=== PATIENT | female | born 1980 | race Caucasian/White ===

== ENCOUNTER 2017-10-21 19:00 | Inpatient (IN) | payer OTHER, SELFPAY ==
[2017-10-21] MEDS: 0.9% Saline Lock 10 ML Syringe IV (19:50)
[2017-10-21 20:21] LABS: Hematocrit 36.2 % (37-47); Hemoglobin 12.3 g/dl (12.0-15.0); Mean Corpuscular Hgb 29.5 pg (27.0-32.0); Mean Corpuscular Volume 86.8 fL (81-99); Mean Platelet Vol. 10.3 fl (6.2-12.0); Platelet Count 225 K/mm3 (150-450); RBC Distribution Width CV 13.6 % (11.6-14.6); RBC Distribution Width SD 43.2 fl (35.1-43.9); Red Blood Count 4.17 M/mm3 (4.2-5.4); Scan Indicated on CBC? Y/N NO; White Blood Count 8.9 K/mm3 (4.4-11.0)
[2017-10-21 20:24] VITALS: BMI 30.7
[2017-10-21] MEDS: miSOPROStol 200 MCG Tablet 400 MCG VAGINAL (20:31)
[2017-10-21 21:41] LABS: Amphetamine Urine VISTA NEGATIVE (<1000 ng/mL); Barbiturate Urine VISTA NEGATIVE (< 200 ng/mL); Benzodiazepine Urine VISTA NEGATIVE (< 200 ng/mL); Cocaine Urine VISTA NEGATIVE (< 300 ng/mL); Ecstacy Urine VISTA NEGATIVE (< 500 ng/mL); Methadone Urine VISTA NEGATIVE (< 300 ng/mL); PCP Urine VISTA NEGATIVE (< 25 ng/mL); THC Urine VISTA NEGATIVE (< 50 ng/mL); Vista UDS pH Range 6
[2017-10-22] MEDS: miSOPROStol 200 MCG Tablet 400 MCG VAGINAL ×3 (00:30→08:59)
[2017-10-22] MEDS: Nalbuphine 10 MG/ML Ampul IV ×3 (04:43→09:04)
[2017-10-22] MEDS: 0.9% Saline Lock 10 ML Syringe IV ×2 (04:43→09:03)
--- NOTE | 2017-10-22 05:31 | PCM.HP.STD ---
Problem List (1) demise before 20 weeks with retention of fetus Status: Chronic History of Present Illness Date of Admission: 10/21/17 The patient is a 36 year old F [with demise discovered at 20 weeks. US measurements c/w 16 week demise, No bleeding or cramping.] Past Medical History Past Medical History (Chronic Problems): Chronic Problems demise before 20 weeks with retention of fetus (Chronic) Allergies No Known Allergies Allergy (Verified 10/21/17 20:34) Home Medications: Ambulatory Orders Medication Instructions Recorded [place]-3 Fatty Acids/Fish Oil 1 each PO DAILY 08/18/13 [[place] 3 1,000 mg Softgel] Ferrous Sulfate [Ferrous Sulfate] 1 tablet PO DAILY 01/29/14 Folic Acid [Folic Acid] 1 mg PO DAILY 01/29/14 Surgical History: - - one section Psychiatric History: No pertinent psych hx SVP RESEARCH AND STRATEGIC ANALYSIS History: No pertinent SVP RESEARCH AND STRATEGIC ANALYSIS history, - - three vaginal deliveries Lives: Spouse/ Significant Other Smoking Status: Never smoker Tobacco Use: Non-smoker Alcohol: None Drugs: None Review of Systems Constitutional: Denies: Anorexia, Chills, Fever, Night Sweats Cardiovascular: Denies: Chest Pain, Chest Pressure, Chest Tightness, Edema Respiratory: Denies: Cough, Shortness of Breath Gastrointestinal: Denies: Abdominal Pain, Constipation, Diarrhea, Nausea Genitourinary: Denies: Dysuria Gynecological: Denies: Breast symptoms VTE Information - Inpt Only VTE Present on Admission: No VTE Mechan Device Prophylaxis: SCD's VTE Pharm Prophylaxis ordered?: No Subjective: Comfortable no complaints Objective: Afeb VSS - Physical Exam General: Alert, Oriented x3, Cooperative, No apparent distress Lungs: Clear to auscultation, Normal air movement Cardiovascular: Regular rate, Regular Rhythm Abdomen: Soft, Non Tender, Non-Distended, Gravid, Appropriate for Gestational Age Extremities: No edema, No Calf Tenderness Skin: No rashes Neurological: Neuro grossly intact Psych/Mental Status: Normal Affect Weight: 185 lb Body Mass Index (BMI) 30.7 Laboratory Tests Past 24 Hrs 10/21/17 10/21/17 10/21/17 19:50 19:50 21:15 WBC 8.9 RBC 4.17 L Hgb 12.3 Hct 36.2 L MCV 86.8 MCH 29.5 MCHC 34.0 RDW 13.6 RDW Differential 43.2 Plt Count 225 MPV 10.3 Urine Opiates Screen NEGATIVE Urine Methadone Screen NEGATIVE Ur Barbiturates Screen NEGATIVE Ur Phencyclidine Scrn NEGATIVE Ur Amphetamines Screen NEGATIVE U Methamphetamin-MDMA NEGATIVE U Benzodiazepines Scrn NEGATIVE Urine Cocaine Screen NEGATIVE U Cannabinoids Screen NEGATIVE Ur Drug Screen Comment Blood Type A POSITIVE Antibody Screen NEGATIVE Assessment/Plan demise at 20 weeks ega but likely demise at 16 weeks. Will start cytotec induction of labor. Procedures previously explained by Dr. Lott. Consents obtained. Blood type rH+.
--- NOTE | 2017-10-22 05:35 | HP.PCM_ITS ---
Problem List (1) demise before 20 weeks with retention of fetus Status: Chronic History of Present Illness Date of Admission: 10/21/17 The patient is a 36 year old F [with demise discovered at 20 weeks. US measurements c/w 16 week demise, No bleeding or cramping.] Past Medical History Past Medical History (Chronic Problems): Chronic Problems demise before 20 weeks with retention of fetus (Chronic) Allergies No Known Allergies Allergy (Verified 10/21/17 20:34) Home Medications: Ambulatory Orders Medication Instructions Recorded [place]-3 Fatty Acids/Fish Oil 1 each PO DAILY 08/18/13 [[place] 3 1,000 mg Softgel] Ferrous Sulfate [Ferrous Sulfate] 1 tablet PO DAILY 01/29/14 Folic Acid [Folic Acid] 1 mg PO DAILY 01/29/14 Surgical History: - - one section Psychiatric History: No pertinent psych hx CHIEF RADIATION THERAPIST History: No pertinent CHIEF RADIATION THERAPIST history, - - three vaginal deliveries Lives: Spouse/ Significant Other Smoking Status: Never smoker Tobacco Use: Non-smoker Alcohol: None Drugs: None Review of Systems Constitutional: Denies: Anorexia, Chills, Fever, Night Sweats Cardiovascular: Denies: Chest Pain, Chest Pressure, Chest Tightness, Edema Respiratory: Denies: Cough, Shortness of Breath Gastrointestinal: Denies: Abdominal Pain, Constipation, Diarrhea, Nausea Genitourinary: Denies: Dysuria Gynecological: Denies: Breast symptoms VTE Information - Inpt Only VTE Present on Admission: No VTE Mechan Device Prophylaxis: SCD's VTE Pharm Prophylaxis ordered?: No Subjective: Comfortable no complaints Objective: Afeb VSS - Physical Exam General: Alert, Oriented x3, Cooperative, No apparent distress Lungs: Clear to auscultation, Normal air movement Cardiovascular: Regular rate, Regular Rhythm Abdomen: Soft, Non Tender, Non-Distended, Gravid, Appropriate for Gestational Age Extremities: No edema, No Calf Tenderness Skin: No rashes Neurological: Neuro grossly intact Psych/Mental Status: Normal Affect Weight: 185 lb Body Mass Index (BMI) 30.7 Laboratory Tests Past 24 Hrs 10/21/17 10/21/17 10/21/17 19:50 19:50 21:15 WBC 8.9 RBC 4.17 L Hgb 12.3 Hct 36.2 L MCV 86.8 MCH 29.5 MCHC 34.0 RDW 13.6 RDW Differential 43.2 Plt Count 225 MPV 10.3 Urine Opiates Screen NEGATIVE Urine Methadone Screen NEGATIVE Ur Barbiturates Screen NEGATIVE Ur Phencyclidine Scrn NEGATIVE Ur Amphetamines Screen NEGATIVE U Methamphetamin-MDMA NEGATIVE U Benzodiazepines Scrn NEGATIVE Urine Cocaine Screen NEGATIVE U Cannabinoids Screen NEGATIVE Ur Drug Screen Comment Blood Type A POSITIVE Antibody Screen NEGATIVE Assessment/Plan demise at 20 weeks ega but likely demise at 16 weeks. Will start cytotec induction of labor. Procedures previously explained by Dr. Lott. Consents obtained. Blood type rH+.
--- NOTE | 2017-10-22 05:39 | PCM.PN.OB ---
Subjective: Relatively comfortable. Nubain IV was given. Objective: Afeb VSS - Physical Exam General: Alert, Oriented x3, Cooperative, No apparent distress Cardiovascular: Regular rate, Regular Rhythm Abdomen: Soft, Non Tender, Non-Distended, Gravid, Appropriate for Gestational Age Extremities: No edema, No Calf Tenderness Skin: No rashes Neurological: Neuro grossly intact Psych/Mental Status: Normal Affect Comment: rim of cervix palpable around parts Weight: 185 lb Body Mass Index (BMI) 30.7 Laboratory Tests Past 24 Hrs 10/21/17 10/21/17 10/21/17 19:50 19:50 21:15 WBC 8.9 RBC 4.17 L Hgb 12.3 Hct 36.2 L MCV 86.8 MCH 29.5 MCHC 34.0 RDW 13.6 RDW Differential 43.2 Plt Count 225 MPV 10.3 Urine Opiates Screen NEGATIVE Urine Methadone Screen NEGATIVE Ur Barbiturates Screen NEGATIVE Ur Phencyclidine Scrn NEGATIVE Ur Amphetamines Screen NEGATIVE U Methamphetamin-MDMA NEGATIVE U Benzodiazepines Scrn NEGATIVE Urine Cocaine Screen NEGATIVE U Cannabinoids Screen NEGATIVE Ur Drug Screen Comment Blood Type A POSITIVE Antibody Screen NEGATIVE Assessment/Plan Will continue with cytotec schedule. Expect delivery within the next few hours.
--- NOTE | 2017-10-22 10:47 | PCM.OB.VAG ---
Vaginal Delivery Maternal Presentation: Medically Indicated Induction Method of Induction: Cytotec Medical Reason for Induction: demise Amniotic Membrane Rupture Type: - - delivered intact Final ILANA: 03/07/18 Final ILANA Source: US <20 weeks Gestational age: 20 Weeks and 4 Days Date of Procedure: 10/22/17 Pre-Operative Diagnosis: 16 week demise Post-Operative Diagnosis: 16 week demise Surgery/ Procedure Performed: Spontaneous Vaginal Delivery Type of Anesthesia: None Description of Procedure: Precipitous spontaneous vaginal delivery of a nonviable baby with Apgars of 0/0. No episiotomy or laceration. I was not present for the delivery. Placenta and baby delivered with an intact membrane with placenta attached. Minimal bleeding noted after delivery. Evidence of maceration from prolonged demise. Baby and placenta to pathology for examination. Patient and her family did not desire to see or hold the baby. They also desire to not know the sex of the baby. They also desire that no or other arrangements be discussed or made as they desire the baby diskposition to be handled by Pathology. Placental Delivery Description: Spontaneous Placenta Disposition: Routine to Lab Medications given after delivery: - - po cytotec given 1.5 hours before delivery Complications: None
--- NOTE | 2017-10-22 10:54 | OP.PCM_ITS ---
Vaginal Delivery Maternal Presentation: Medically Indicated Induction Method of Induction: Cytotec Medical Reason for Induction: demise Amniotic Membrane Rupture Type: - - delivered intact Final ILANA: 03/07/18 Final ILANA Source: US <20 weeks Gestational age: 20 Weeks and 4 Days Date of Procedure: 10/22/17 Pre-Operative Diagnosis: 16 week demise Post-Operative Diagnosis: 16 week demise Surgery/ Procedure Performed: Spontaneous Vaginal Delivery Type of Anesthesia: None Description of Procedure: Precipitous spontaneous vaginal delivery of a nonviable baby with Apgars of 0/ 0. No episiotomy or laceration. I was not present for the delivery. Placenta and baby delivered with an intact membrane with placenta attached. Minimal bleeding noted after delivery. Evidence of maceration from prolonged demise. Baby and placenta to pathology for examination. Patient and her family did not desire to see or hold the baby. They also desire to not know the sex of the baby. They also desire that no or other arrangements be discussed or made as they desire the baby diskposition to be handled by Pathology. Placental Delivery Description: Spontaneous Placenta Disposition: Routine to Lab Medications given after delivery: - - po cytotec given 1.5 hours before delivery Complications: None
--- NOTE | 2017-10-22 10:54 | PCM.DCVAG ---
Discharge Diet: No Restrictions Discharge Activity: May Shower, May Take a Tub Bath May resume sexual activity in: 3 weeks Additional Activity Instructions:: Nothing in the vagina for 4-6 weeks. You may return to work/school in 6 weeks. Call your doctor if you observe: Fever of 101 or Higher, Inability to urinate, Inability to have a bowel movement, Using more than one pad per hour Additional Instructions: If you experience any of the following, contact your healthcare provider. Bleeding that soaks a pad every hour for 2 hours Unrelieved incision or abdominal pain Swelling, redness, discharge or bleeding from your incision or episiotomy site Your incision begins to separate Problems urinating (including inability to urinate or burning while urinating). Visual changes Severe headache Flu-like symptoms Pain or redness in one of both of your breasts Pain, warmth, tenderness or swelling in your legs, especially the calf area Frequent nausea and vomiting Symptoms of depression or anxiety If you experience any of the following, call 911 or go to the nearest Emergency Room. Chest pain Problems breathing Seizure activity Partial or complete paralysis of a body part, slurred speech, weakness or drooping of the face, or a sudden inability to walk or hold your balance Allergies/Adverse Reactions: Allergies No Known Allergies Allergy (Verified 10/21/17 20:34) Medications to take at Discharge [place]-3 Fatty Acids/Fish Oil [[place] 3 1,000 mg Softgel] 1 each PO DAILY 08/18/13 Ferrous Sulfate [Ferrous Sulfate] 1 tablet PO DAILY 01/29/14 Folic Acid [Folic Acid] 1 mg PO DAILY 01/29/14 Please Follow Up With: Reza Lott MD - [phone] When: Call to make an appointment with your doctor in 3-4 weeks.
--- NOTE | 2017-10-22 10:55 | DCINST_ITS ---
Discharge Diet: No Restrictions Discharge Activity: May Shower, May Take a Tub Bath May resume sexual activity in: 3 weeks Additional Activity Instructions:: Nothing in the vagina for 4-6 weeks. You may return to work/school in 6 weeks. Call your doctor if you observe: Fever of 101 or Higher, Inability to urinate, Inability to have a bowel movement, Using more than one pad per hour Additional Instructions: If you experience any of the following, contact your healthcare provider. * Bleeding that soaks a pad every hour for 2 hours * Unrelieved incision or abdominal pain * Swelling, redness, discharge or bleeding from your incision or episiotomy site * Your incision begins to separate * Problems urinating (including inability to urinate or burning while urinating) . * Visual changes * Severe headache * Flu-like symptoms * Pain or redness in one of both of your breasts * Pain, warmth, tenderness or swelling in your legs, especially the calf area * Frequent nausea and vomiting * Symptoms of depression or anxiety If you experience any of the following, call 911 or go to the nearest Emergency Room. * Chest pain * Problems breathing * Seizure activity * Partial or complete paralysis of a body part, slurred speech, weakness or drooping of the face, or a sudden inability to walk or hold your balance Allergies/Adverse Reactions: Allergies No Known Allergies Allergy (Verified 10/21/17 20:34) Medications to take at Discharge [place]-3 Fatty Acids/Fish Oil [[place] 3 1,000 mg Softgel] 1 each PO DAILY Ferrous Sulfate [Ferrous Sulfate] 1 tablet PO DAILY 01/29/14 Folic Acid [Folic Acid] 1 mg PO DAILY 01/29/14 Please Follow Up With: Reza Lott MD - [phone] When: Call to make an appointment with your doctor in 3-4 weeks.
[2017-10-22 13:45] VITALS: BP 134/77; PULSE 98; RESP 20; TEMP 36.8
--- NOTE | 2017-10-22 15:22 | NURSING ---
Demise, did not need to get to complete dilation for delivery.
--- NOTE | 2017-10-22 15:24 | NURSING ---
Baby delivered in bag of water with placenta attached. membranes were not ruptured.
--- NOTE | 2017-10-22 15:32 | FET_PTH ---
PATIENT: YELITZA RAMIREZ LOC: [facility] U#:[id number] AGE/SX: 36/F ROOM: [facility]021 RE10/21/[address]: Dr. Reza Lott MD : 1980 BED: 1 DIS: 10/22/2017 SPEC #: [id number] RECD: 10/22/17 16:19 STATUS: FREDY ALLI #: [id number] JOHN PAUL: 10/22/17 15:[address]: Reza Lott DEPT: SURGICAL PATHOLOGY RECD BY: Joseph Yuan Tissues: Fetus, NOS Procedures: Surgery Specimen Level IV Surgery Specimen Level HEADER OPERATION: Vaginal delivery PRE-OP DIAGNOSIS: demise TISSUE SUBMITTED: Placenta with fetus MICROSCOPIC DIAGNOSIS Placenta with fetus: Placental disc ? immature placenta (100.6 gm). Membranes - no pathologic diagnosis. Umbilical cord ? three blood vessels and no pathologic diagnosis. Fetus ? Sex ? male Mackay to rump length ? 15 cm Mackay to heel length ? 19.5 cm Biparietal diameter ? 14.5 cm Thorax ? 12.5 cm in diameter. Weight ? 143.3 gm No gross external or internal anomalies. Macerated fetus. Autolysis of internal organ. Estimated gestational age ~ 18 weeks. SJ:sydney 10/26/17 MICROSCOPIC DESCRIPTION Slides are reviewed. GROSS DESCRIPTION Received in fixative is one container labeled with the patient's name and designated placenta. The specimen consists of a macerated male fetus measuring 15 cm crown to rump, 19.5 cm heel to crown. The biparietal diameter is 14.5 cm and the thorax measures 12.5 cm in diameter. The external features of the fetus appear to be normal. Five digits are present on all extremities. The anus is probe-patent. A 37 cm of umbilical cord is attached to the umbilicus. The umbilical cord displays marked spiraling and diameter varying from 1 cm to 0.2 cm. The narrowest diameter is present at its attached to the umbilicus. The fetus without umbilical cord weighs 143.3 gm. The internal thoracic and abdominal organs are situated in their normal locations. The diaphragm is intact. The intracranial tissue appears to be autolyzed. A small portion of umbilical cord measuring 9.5 cm is attached to the submitted placenta. The membranes are light sanchez in color and ruptured at the edge of the placental disc. The placental disc measures 11 x 7 x 2.5 cm and weighs 100.6 gm. A submembranous hematoma is attached to the placental disc measuring 7 x 2 x 1 cm. Serial sections of the placental disc do not reveal mass lesions. Director Of Resource Development sections are submitted in six cassettes as follows: 1 & 2 ? b2b outside sales representative sections of fetus, 3 ? umbilical cord and placental membranes, 4-6 ? placental disc. / AM:sydney 10/23/17 TC:5 CPT: 98827, 97873
[2017-10-27 16:52] LABS: Pathology Specimen OB SEE PATHOLOGY REPORT
== END 2017-10-22 13:45 | disposition home or self-care (01) | DRG 779 ==
PROVIDERS: Obstetrics & Gynecology; Admitting Provider Obstetrics & Gynecology; Visit Provider Obstetrics & Gynecology
DX: O02.1 Missed abortion (principal); Z37.1 Single stillbirth; Z3A.20 20 weeks gestation of pregnancy
CPT/HCPCS: 80307; 85027; 86850; 86900; 88305; 88309; 99218; A4216; G0378

== ENCOUNTER 2018-07-01 06:01 | Day surgery (SDC) | payer OTHER, SELFPAY ==
[2018-06-25 17:00] LABS: Mean Corp Hgb Conc 32.4 g/gl (32-36); Mean Corpuscular Volume 89.4 fL (81-99); Mean Platelet Vol. 10.1 fl (6.2-12.0); Platelet Count 284 K/mm3 (150-450); RBC Distribution Width CV 12.2 % (11.6-14.6); RBC Distribution Width SD 39.3 fl (35.1-43.9); Red Blood Count 4.14 M/mm3 (4.2-5.4); White Blood Count 9.1 K/mm3 (4.4-11.0)
[2018-06-25 17:01] LABS: Scan Indicated on CBC? Y/N NO
[2018-06-25 17:53] LABS: Pregnancy, Serum, hCG Quali. NEGATIVE Negative (0-9 Nonpreg)
[2018-06-25 17:56] LABS: Prothrombin Time (Protime)PT. 12.9 SECONDS (11.7-14.9)
--- NOTE | 2018-06-30 17:35 | HP.PCM_ITS ---
History and Physical Date of Admission: 07/01/18 Surgical History and Physical Susanna Perera, a 37 year old female 3 1 1 0 3, presents for L/S BTO with filsche clips and distal salpingectomy on June at 7:30. -- Desires Permanent Sterilization -- She has considered this form of BC for quite some time. MEDICATIONS HISTORY: ALLERGIES: No Known Allergies Infections - Chicken pox, mono and HX OF ABNORMAL PAPs Illnesses - none Accidents - None Hospitalizations - Childbirth and see surgery Review of Systems: GENERAL - Denies fever, or chills SKIN - Denies skin changes EYES - Denies visual changes EARS - Denies difficulty hearing NOSE - Denies nasal congestion or bleeding MOUTH - Denies sore throat or difficulty swallowing NECK - Denies pain or swelling RESPIRATORY - Denies shortness of breath or wheezing CARDIOVASCULAR - Denies palpitations or chest pain GASTROINTESTINAL - Denies nausea, vomiting, diarrhea, constipation GENITOURINARY - Denies dysuria, frequency of urination, incontinence of urine MUSCULOSKELETAL - Denies joint or muscle pain NEUROLOGICAL - Denies localized numbness or weakness PSYCHIATRIC - Denies depression or anxiety ENDOCRINE - Denies heat or cold intolerance, weight loss or gain HEMATO-IMMUNOLOGIC - Denies excesive bleeding with cuts SOCIAL HISTORY: Alcohol Use - occasionally not while Smoking - Never Diet - balanced Diet, caffeine < 2 drinks per day and water intake one quart daily Lifestyle - moderate stress lifestyle and Exercise - very active Seat Belt Use - always Employer - [employer] 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 Illicit Drug Use - denies use of street drugs Sexual Activity - Residence - owns a home and lives with family Place of - [place] Hours Worked - 40 hours per week Spouse-Sig Other Name - Steven Spouse-Sig Other Occupation - Teacher at [employer] Spouse-Sig Other Phone No - [phone] Children Name(s) - Precious Ley Huxley Control - NONE FAMILY HISTORY: MENSTRUAL HISTORY: LMP Known?- DefiniteAmount/Duration - 5 days, Regularity - Regular, Frequency - monthly days, LMP - 05/30/18, Age Onset Menarche - 14 PAST PREGNANCIES: Total Pregnancies - 5; Full Term Pregnancies - 3; Premature - 1; Abortions, Induced - 0; Abortions, Spontaneous - 1; Ectopics - 0; Multiple Births - 0; Living Children - 3 SURGICAL HISTORY: 1. [place] Teeth Removal ; - 2. 2009 Cold Knife Conization ; Dr. Sanches - 3. 01/30/2014 ; Dr. Murphy - PHYSICAL EXAM BP- 100/68 Sitting, Right arm, regular cuff Temp- 98.3 Taken Orally Weight- 174.05371 lbs Height- 65 inch BMI:29.02 CONSTITUTIONAL - NAD, well nourished, and well developed SKIN - No rash, lesions, or ulcers HEENT - Normocephalic, PERRLA, EOMI NECK - No nodes, no nuchal rigidity and thyroid normal size and texture LYMPH NODES - Palpation of lymph nodes in neck and groins within normal limits LUNGS - CTA x2 without wheezes, crackles or rales CARDIAC - Regular rate and rhythm without rubs, murmurs, or gallops ABDOMEN - Without hepatosplenomegaly, distention, masses, rebound, or guarding; normal bowel sounds; no hernias EXTREMITIES - No edema or calf tenderness NEUROLOGICAL - Cranial nerves II-XII grossly intact PSYCHIATRIC - A and O to time, place, person, mood and affect ASSESSMENT/PLAN: 1. Sterilization Status Desires permanent sterilization. Disussed options and pt declines LARCs or other non-permanent options. Desires tubal. Plan L/S BTO with filsche clips and distal salpingectomy. Discussed RBAs and all questions answered.
[2018-07-01] VITALS (7 sets, daily range): BP systolic 102–125; BP diastolic 63–83; PULSE 50–76; RESP 16; TEMP 36.2–37.1; O2SAT 93–97; BMI 28.7
--- NOTE | 2018-07-01 | FALS_PTH ---
PATIENT: YELITZA RAMIREZ LOC: [facility] [place] U#:[id number] AGE/SX: 37/F ROOM: RE07/01/[address]: Dr. Reza Lott MD : 1980 BED: DIS: 07/01/2018 SPEC #: [id number] RECD: 07/01/18 12:41 STATUS: FREYD ALLI #: [id number] JOHN PAUL: 07/01/18 00:[address]: Reza Lott DEPT: SURGICAL PATHOLOGY RECD BY: Addison Stephen ENTERED: 07/01/18 12:41 SP TYPE: FALL TUBES ANDRIYHR DR: No Primary Care Phys Tissues: Fallopian tube Procedures: Surgery Specimen Level II HEADER OPERATION: Laparoscopic bilateral tubal occlusion, Filshie clips, laparoscopic distal salpingectomy bilateral PRE-OP DIAGNOSIS: Sterilization request TISSUE SUBMITTED: Bilateral distal fallopian tubes MICROSCOPIC DIAGNOSIS Bilateral fallopian tubes: Bilateral fallopian tubes including fimbrial ends with focal chronic inflammation. A paratubal cyst. SJ:sp 11/16/18 MICROSCOPIC DESCRIPTION Slides are reviewed. GROSS DESCRIPTION Received is one container labeled with the patient's name and designated distal fallopian tubes, bilateral. The specimen consists of two tubular pieces of pink-sanchez soft tissue consistent with fallopian tubes with fimbrial ends,the right is identified with a suture. The average length is 6 cm and average diameter is 0.7 cm. One fallopian tube is inked in black ink. Metal Bending Machine Operator sections of fallopian tubes is submitted in two cassettes./AM:charlie TC: 3 CPT: 82356 x2
[2018-07-01 06:42] LABS: Internal QC Validated? YES +Cl - CLEAR BKGD; Pregnancy, Urine Negative Negative
--- NOTE | 2018-07-01 07:39 | OP.PCM_ITS ---
Operative Report Date of Procedure: 07/01/18 Surgeon: Reza Lott MD, FACOG Anesthesia: Sav Hensley MD Type of Anesthesia: General Endotracheal Pre-Op Diagnosis: Desires Permanent Sterilization Postoperative Diagnosis: Desires Permanent sterilization; Adhesions Procedure: Bilateral Tubal Occlusion With Filshie Clips and Partial Distal Salpingectomy; Lysis of Adhesions Findings: 8 cm uterus with normal appearing fallopian tubes and ovaries; left fallopian tube densely adhered to the left pelvic sidewall Indications: This is a 37 year old patient who has the above diagnosis. She has considered sterilization for quite some time. She is aware of the permanent nature of the procedure, the failure rate of 1-2%, and the availability of other nonpermanent control options. All questions were answered to consider the patient well-informed. Procedure: The patient was taken to the operating room where after induction of general anesthesia, she was placed in the dorsolithotomy position and prepped and draped in the usual sterile fashion. The bladder was drained of approximately 50 cc of clear yellow urine with a catheter. Approximately 20 cc of half percent ropivacaine was injected subumbilically, suprapubically and midway between. A 5 mm bladeless trocar was placed subumbilically and intraperitoneal placement confirmed. After CO2 insufflation was complete, a 7/8 mm bladeless trocar was introduced suprapubically. The above findings were noted. An alligator grasper port was then placed midway between these 2 ports for tubal manipulation. Each fallopian tube was identified to its fimbriated end and an Enseal device was used to divide the mesosalpinx leaving approximately 1 cm stump of fallopian tube on each side. Filshie clips were placed on the stump of each fallopian tube. The peritoneal cavity and upper abdomen were examined and noted to be normal. Photographs were taken. Laparoscopic instruments with as much CO2 gas as possible were removed and incisions were closed with interrupted 4-0 Monocryl suture. Steri-Strips placed across the incisions. Patient tolerated procedure well was taken to recovery room in satisfactory condition sponge instrument and needle counts were all reportedly correct. Estimated blood loss for the case was minimal. There were no apparent complicat ions of the surgery. Specimens to pathology was bilateral tubes
--- NOTE | 2018-07-01 07:40 | DCINST_ITS ---
Discharge Diet: No Restrictions Discharge Activity: Return to Normal Activity, May Drive - when you are no longer taking pain/narcotic medicines., May Shower, May Take a Tub Bath May resume sexual activity in: 3 weeks Additional Activity Instructions:: Ambulate often the next week after surgery. Nothing in the vagina for 5 days. Call your doctor if your incision/area has: Continuous Slow Oozing, Sudden Increased Bleeding, Increased Pain/ Swelling, Increased Redness, Foul Smelling Discharge Call your doctor if you observe: Fever of 101 or Higher, Inability to urinate, Inability to have a bowel movement, Using more than one pad per hour Allergies/Adverse Reactions: Allergies No Known Allergies Allergy (Verified 06/24/18 14:51) Medications to take at Discharge Pnv95/Ferrous Fumarate/FA [ Formula] 1 each PO DAILY 06/24/18 Hydrocodone/Acetaminophen [[place] 5-325 Tablet] 1 ea PO Q6H PRN PRN 7 Days #10 tab 07/01/18 The following prescriptions were given: Hydrocodone/Acetaminophen [[place] 5-325 Tablet] 1 ea PO Q6H PRN PRN 7 Days #10 tab PRN Reason: Severe Pain (-05/26) Primary Care Physician: Care Physician,No Primary [Primary Care Provider] - Test Results: Test results from this visit will be discussed in further detail at your follow- up appointment, if applicable. Please Follow Up With: Reza Lott MD - [phone] When: 2-3 weeks
[2018-07-01] MEDS: Ropivacaine 0.5% 30 ML Vial (08:00)
[2018-07-01] MEDS: HYDROcodone Bitartrate/Apap 5/325 Tablet PO (10:37)
--- NOTE | 2018-07-01 10:40 | SUR.PHASEII ---
one norco given per mar for #5 pain on the pain scale. pt drinking fluids with out problem. small amt red drainage noted to umbillical steristrips. 2x2 applied.
== END 2018-07-01 11:35 | disposition home or self-care (01) ==
LOC: SDC 06:03 → AC 06:09
PROVIDERS: Anesthesiology; Referring Provider Obstetrics & Gynecology; Visit Provider Obstetrics & Gynecology
PROC: (CPT 58671; principal; 2018-07-01 07:15)
DX: Z30.2 Encounter for sterilization (principal); N70.11 Chronic salpingitis; N83.8 Other noninflammatory disorders of ovary, fallopian tube and broad ligament
CPT/HCPCS: 00851; 58661; 58671; 81025; 84703; 85027; 85610; 85730; 86850; 86900; 88302; J7120; C1760; J0330; J2405